=== PATIENT | male | born 1965 | race Caucasian/White ===

== ENCOUNTER 2024-05-15 17:52 | Emergency (ER) | payer OTHER ==
[~2024-05-15] VITALS: Ht 172.7 cm; Wt 103.4 kg
[2024-05-15 18:00] VITALS: BP 148/80; PULSE 86; RESP 18; TEMP 98; O2SAT 98
--- NOTE | 2024-05-15 18:24 | NUR ---
Patient discharged with v/s stable. Written and verbal after care instructions given FOR RICE THERPAY,MUSCLE CRAMPS,MUSCLE STRAIN Patient verbalized understanding. Ambulatory with steady gait. All questions addressed prior to discharge. Advised to follow up with PMD.
== END 2024-05-15 18:24 | disposition home or self-care (01) ==
LOC: MED 17:52
DX: S76.912A Strain of unspecified muscles, fascia and tendons at thigh level, left thigh, initial encounter (principal); X58.XXXA Exposure to other specified factors, initial encounter; Y92.89 Other specified places as the place of occurrence of the external cause; Y93.89 Activity, other specified; Y99.8 Other external cause status
CPT/HCPCS: 99281